=== PATIENT | female | born 1980 | race Caucasian/White ===

== ENCOUNTER 2021-10-28 10:53 | Emergency (ER) | payer OTHER ==
[~2021-10-28] VITALS: Ht 149.9 cm; Wt 63.5 kg
[2021-10-28 10:58] VITALS: BP 114/70
--- NOTE | 2021-10-28 11:06 | NUR ---
CRIS REEVES AT BEDSIDE FOR FURTHER EVAL
[2021-10-28] MEDS ORDERED: ACETAMINOPHEN 650 MG/20.3 ML UDC PO ONE (11:15)
--- NOTE | 2021-10-28 11:16 | NUR ---
41 y/o female bib self c/o of left knee pain x1 day. noted pt limping and swelling on affected area. denies any trauma/injury. denies nausea, vomiting, diarrhea. a&o x4, ambulates with slow gait. lungs clear bl, heart rate even and regular. pt denies any fever, cp, sob, or cough at this time. pt states pain is 8/10 at this time. patient positioned for comfort. hob elevated. bed down. ermd made aware of pt. promise [facility]: macy
[2021-10-28] MEDS ORDERED: IBUP-2213 PO (12:07)
--- NOTE | 2021-10-28 12:40 | NUR ---
PER ER MID LEVEL, PALLAVI WRAP X 1 APPLIED TO L KNEE. + CMS. PT ALSO GIVEN CRUTCHES. CRUTCHES ADJUSTED TO PT HEIGHT AND ARM LENGTH AND ADVISED TO USE CAUTION WHILE WALKING WITH CRUTCHES
[2021-10-28 12:52] VITALS: BP 114/70
--- NOTE | 2021-10-28 12:53 | NUR ---
Patient discharged with v/s stable. Written and verbal after care instructions given and explained. Patient alert, oriented and verbalized understanding of instructions. Ambulatory W/C CRUTCHES with steady gait. All questions addressed prior to discharge. ID band removed. Patient advised to follow up with PMD. Rx of MOTRIN given. Patient educated on indication of medication including possible reaction and side effects. Opportunity to ask questions provided and answered.
== END 2021-10-28 12:53 | disposition home or self-care (01) ==
LOC: MED 10:53
DX: S83.92XA Sprain of unspecified site of left knee, initial encounter (principal); E11.9 Type 2 diabetes mellitus without complications; Z79.4 Long term (current) use of insulin; Z79.899 Other long term (current) drug therapy; W18.30XA Fall on same level, unspecified, initial encounter; Y93.89 Activity, other specified; Y92.89 Other specified places as the place of occurrence of the external cause; Y99.8 Other external cause status
CPT/HCPCS: 73562; 99283